=== PATIENT | female | born 2000 | race Caucasian/White ===

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

== ENCOUNTER 2019-03-02 22:55 | Emergency (ER) | payer OTHER ==
[~2019-03-02] VITALS: Ht 144.7 cm; Wt 72.6 kg
[~2019-03-02 22:55] MED LIST changes: +AMOXICILLIN500 M2 PO
[2019-03-02 22:57] VITALS: BP 126/47
[2019-03-02 23:58] LABS: BASO % 0.2 % (0.0-1.0); EOS # 0.2 10*3/uL (0.0-0.4); EOS % 1.5 % (1.0-4.0); HEMATOCRIT 33.1 % (37.0-47.0); HEMOGLOBIN 11.4 g/dl (12.0-16.0); LYMPH # 2.9 10*3/uL (1.3-4.4); LYMPH % 19.2 % (27.0-41.0); MEAN CELL VOLUME 91.7 fl (81.0-99.0); MEAN CORPUSCULAR HGB 31.6 pg (27.0-31.0); MEAN CORPUSCULAR HGB CONC 34.4 g/dl (33.0-37.0); MEAN PLATELET VOLUME 10.5 fl (9.6-12.3); MONO # 1.1 10*3/uL (0.1-1.0); NEUT # 10.8 10*3/uL (2.3-7.9); NEUT % 71.4 % (47.0-73.0); PLATELET COUNT AUTOMATED 254 10*3/uL (130-400); RED BLOOD COUNT 3.61 10*6/uL (4.10-5.10); RED CELL DISTRI WIDTH 12.6 % (0-14.5); WHITE BLOOD COUNT 15.1 10*3/uL (4.8-10.8)
[2019-03-03 00:09] LABS: BUN 5 mg/dl (7-24); CHLORIDE 106 mmol/L (98-107); CREATININE 0.39 mg/dL (0.55-1.02); POTASSIUM 3.6 mmol/L (3.5-5.1); SODIUM 137 mmol/L (136-145)
== END 2019-03-03 02:00 | disposition short-term general hospital (02) ==
LOC: ED 22:55
PROVIDERS: Emergency Medicine
DX: O60.03 Preterm labor without delivery, third trimester (principal); Z3A.28 28 weeks gestation of pregnancy

== ENCOUNTER → 2020-08-26 | Outpatient (CLI) | payer OTHER | END | disposition home or self-care (01) | LOC: CARD 15:25 | PROVIDERS: ATTEND Nurse Practitioner | DX: Z51.81 Encounter for therapeutic drug level monitoring (principal); I49.8 Other specified cardiac arrhythmias; Z79.899 Other long term (current) drug therapy ==

== ENCOUNTER 2020-10-31 23:07 | Emergency (ER) | payer OTHER ==
[~2020-10-31] VITALS: Ht 152.4 cm; Wt 81.6 kg
[2020-10-31 23:19] VITALS: BP 99/75
[2020-11-01] MEDS ORDERED: AUGMENTIN 875875 MG PO (02:00)
== END 2020-11-01 02:14 | disposition home or self-care (01) ==
LOC: ED 23:07
DX: J32.9 Chronic sinusitis, unspecified (principal); Z96.22 Myringotomy tube(s) status

== ENCOUNTER 2021-09-27 12:10 | Emergency (ER) | payer OTHER ==
[~2021-09-27] VITALS: Ht 144.7 cm; Wt 77.1 kg
[~2021-09-27 12:10] MED LIST changes: +AUGMENTIN 875875 MG PO
[2021-09-27 12:17] VITALS: BP 123/66
[2021-09-27 12:42] LABS: BILIRUBIN Negative (Negative); BLOOD 1+ (Negative); CLARITY Clear (Clear); COLOR Yellow (Yellow); GLUCOSE Negative (Negative); KETONE Negative (Negative); LEUKO ESTERASE Trace (Negative); NITRITE Negative (Negative); PH 6.5 (4.5-8.0); SPECIFIC GRAVITY 1.015 (1.001-1.030); UROBILINOGEN 0.2 E.U./dl (0.0-1.0)
[2021-09-27 12:52] LABS: BACTERIA 1+; MUCOUS TRACE
== END 2021-09-27 12:55 | disposition home or self-care (01) ==
LOC: ED 12:10
PROVIDERS: Nurse Practitioner Family
DX: N91.2 Amenorrhea, unspecified (principal)

== ENCOUNTER 2021-12-13 10:20 | Emergency (ER) | payer OTHER ==
[~2021-12-13] VITALS: Ht 149.8 cm; Wt 80.7 kg
[2021-12-13 10:32] VITALS: BP 111/55
[2021-12-13 10:57] LABS: BILIRUBIN Negative (Negative); BLOOD Negative (Negative); CLARITY Clear (Clear); COLOR Yellow (Yellow); GLUCOSE Negative (Negative); KETONE Negative (Negative); LEUKO ESTERASE 1+ (Negative); NITRITE Negative (Negative)
[2021-12-13 11:13] LABS: BASO % 0.2 % (0.0-1.0); EOS # 0.3 10*3/uL (0.0-0.4); EOS % 2.2 % (1.0-4.0); HEMATOCRIT 35.5 % (37.0-47.0); LYMPH # 3.2 10*3/uL (1.3-4.4); LYMPH % 27.2 % (27.0-41.0); MEAN CELL VOLUME 89.4 fl (81.0-99.0); MEAN CORPUSCULAR HGB 30.5 pg (27.0-31.0); MEAN CORPUSCULAR HGB CONC 34.1 g/dl (33.0-37.0); MEAN PLATELET VOLUME 9.5 fl (9.6-12.3); MONO # 0.7 10*3/uL (0.1-1.0); MONO % 6.2 % (3.0-9.0); NEUT # 7.6 10*3/uL (2.3-7.9); NEUT % 63.9 % (47.0-73.0); PLATELET COUNT AUTOMATED 365 10*3/uL (130-400); RED BLOOD COUNT 3.97 10*6/uL (4.10-5.10); RED CELL DISTRI WIDTH 12.7 % (0-14.5); WHITE BLOOD COUNT 11.9 10*3/uL (4.8-10.8)
[2021-12-13 11:16] LABS: MUCOUS TRACE
[2021-12-13 11:31] LABS: ALKALINE PHOSPHATASE 80 U/L (45-117); BUN 9 mg/dl (7-24); CHLORIDE 107 mmol/L (98-107); CREATININE 0.54 mg/dL (0.55-1.02); LIPASE 80 U/L (73-393); POTASSIUM 3.7 mmol/L (3.5-5.1); SGOT/AST 28 IU/L (3-35); SGPT/ALT 49 U/L (12-78); SODIUM 135 mmol/L (136-145); TOTAL PROTEIN 7.3 gm/dL (6.4-8.2)
[2021-12-13] MEDS ORDERED: MACROBID100 M1 PO (12:08)
== END 2021-12-13 12:31 | disposition home or self-care (01) ==
LOC: ED 10:20
PROVIDERS: Emergency Medicine
DX: O23.91 Unspecified genitourinary tract infection in pregnancy, first trimester (principal); Z3A.01 Less than 8 weeks gestation of pregnancy

== ENCOUNTER 2022-01-17 09:13 | Emergency (ER) | payer OTHER ==
[~2022-01-17] VITALS: Ht 152.4 cm; Wt 77.1 kg
[2022-01-17 09:33] VITALS: BP 117/59
== END 2022-01-17 13:15 | disposition left against medical advice (07) ==
LOC: ED 09:13
DX: O99.511 Diseases of the respiratory system complicating pregnancy, first trimester (principal); Z20.828 Contact with and (suspected) exposure to other viral communicable diseases; Z3A.10 10 weeks gestation of pregnancy; J02.9 Acute pharyngitis, unspecified; R09.81 Nasal congestion; R09.89 Other specified symptoms and signs involving the circulatory and respiratory systems

== ENCOUNTER 2022-02-08 09:51 | Emergency (ER) | payer OTHER ==
[~2022-02-08] VITALS: Ht 175.2 cm; Wt 77.1 kg
[2022-02-08 10:00] VITALS: BP 158/99
[2022-02-08 10:19] LABS: BASO % 0.1 % (0.0-1.0); HEMATOCRIT 38.2 % (37.0-47.0); LYMPH # 1.7 10*3/uL (1.3-4.4); LYMPH % 8.2 % (27.0-41.0); MEAN CELL VOLUME 88.2 fl (81.0-99.0); MEAN CORPUSCULAR HGB 30.9 pg (27.0-31.0); MEAN CORPUSCULAR HGB CONC 35.1 g/dl (33.0-37.0); MEAN PLATELET VOLUME 9.4 fl (9.6-12.3); MONO # 0.7 10*3/uL (0.1-1.0); MONO % 3.5 % (3.0-9.0); NEUT % 87.8 % (47.0-73.0); PLATELET COUNT AUTOMATED 468 10*3/uL (130-400); RED BLOOD COUNT 4.33 10*6/uL (4.10-5.10); WHITE BLOOD COUNT 20.5 10*3/uL (4.8-10.8)
[2022-02-08 10:34] LABS: ALKALINE PHOSPHATASE 76 U/L (45-117); BUN 10 mg/dl (7-24); CHLORIDE 102 mmol/L (98-107); CREATININE 0.72 mg/dL (0.55-1.02); LIPASE 120 U/L (73-393); POTASSIUM 3.3 mmol/L (3.5-5.1); SGOT/AST 23 IU/L (3-35); SGPT/ALT 33 U/L (12-78); SODIUM 134 mmol/L (136-145); TOTAL PROTEIN 8.8 gm/dL (6.4-8.2)
[2022-02-08 11:33] LABS: BILIRUBIN Negative (Negative); BLOOD 1+ (Negative); CLARITY Cloudy (Clear); COLOR Dark Yellow (Yellow); GLUCOSE Negative (Negative); KETONE Trace (Negative); LEUKO ESTERASE Trace (Negative); NITRITE Negative (Negative); SPECIFIC GRAVITY 1.025 (1.001-1.030)
[2022-02-08 12:38] LABS: BACTERIA 2+; EPITHELIAL CELLS 21-30
== END 2022-02-08 12:15 | disposition home or self-care (01) ==
LOC: ED 09:51
PROVIDERS: Emergency Medicine
DX: O21.9 Vomiting of pregnancy, unspecified (principal); Z20.822 Contact with and (suspected) exposure to COVID-19; Z3A.13 13 weeks gestation of pregnancy

== ENCOUNTER 2022-03-30 07:13 | Emergency (ER) | payer OTHER ==
[~2022-03-30] VITALS: Ht 162.5 cm; Wt 77.1 kg
[2022-03-30 07:26] VITALS: BP 131/95
[2022-03-30 07:54] LABS: BASO % 0.1 % (0.0-1.0); EOS % 0.1 % (1.0-4.0); HEMATOCRIT 35.4 % (37.0-47.0); LYMPH # 2.1 10*3/uL (1.3-4.4); LYMPH % 13.6 % (27.0-41.0); MEAN CELL VOLUME 90.5 fl (81.0-99.0); MEAN CORPUSCULAR HGB 31.5 pg (27.0-31.0); MEAN CORPUSCULAR HGB CONC 34.7 g/dl (33.0-37.0); MEAN PLATELET VOLUME 10.2 fl (9.6-12.3); MONO # 0.5 10*3/uL (0.1-1.0); MONO % 3.4 % (3.0-9.0); NEUT # 12.7 10*3/uL (2.3-7.9); NEUT % 82.5 % (47.0-73.0); PLATELET COUNT AUTOMATED 329 10*3/uL (130-400); RED BLOOD COUNT 3.91 10*6/uL (4.10-5.10); RED CELL DISTRI WIDTH 13.3 % (0-14.5); WHITE BLOOD COUNT 15.4 10*3/uL (4.8-10.8)
[2022-03-30 08:16] LABS: ALKALINE PHOSPHATASE 78 U/L (45-117); BUN 7 mg/dl (7-24); CHLORIDE 103 mmol/L (98-107); CREATININE 0.64 mg/dL (0.55-1.02); LIPASE 71 U/L (73-393); SGPT/ALT 30 U/L (12-78); SODIUM 133 mmol/L (136-145); TOTAL PROTEIN 8.3 gm/dL (6.4-8.2)
[2022-03-30 08:19] LABS: SGOT/AST 54 IU/L (3-35)
[2022-03-30 10:18] LABS: BILIRUBIN Negative (Negative); BLOOD Negative (Negative); CLARITY Cloudy (Clear); COLOR Yellow (Yellow); GLUCOSE Trace (Negative); KETONE 4+ (Negative); LEUKO ESTERASE Trace (Negative); NITRITE Negative (Negative); SPECIFIC GRAVITY 1.025 (1.001-1.030)
[2022-03-30 10:51] LABS: RBC 0-2 rbc/hpf (0-2)
== END 2022-03-30 13:00 | disposition short-term general hospital (02) ==
LOC: ED 07:13
PROVIDERS: Emergency Medicine
DX: O21.0 Mild hyperemesis gravidarum (principal); O26.892 Other specified pregnancy related conditions, second trimester; R10.13 Epigastric pain; R00.0 Tachycardia, unspecified; Z79.2 Long term (current) use of antibiotics; Z96.22 Myringotomy tube(s) status; Z3A.19 19 weeks gestation of pregnancy

== ENCOUNTER 2022-07-10 15:24 | Emergency (ER) | payer OTHER ==
[~2022-07-10] VITALS: Ht 149.8 cm; Wt 81.6 kg
[2022-07-10 16:08] VITALS: BP 121/73
== END 2022-07-10 19:15 | disposition home or self-care (01) ==
LOC: ED 15:24
DX: O26.893 Other specified pregnancy related conditions, third trimester (principal); O99.343 Other mental disorders complicating pregnancy, third trimester; R10.32 Left lower quadrant pain; R10.31 Right lower quadrant pain; F31.9 Bipolar disorder, unspecified; Z87.442 Personal history of urinary calculi; Z98.890 Other specified postprocedural states; Z3A.32 32 weeks gestation of pregnancy

== ENCOUNTER 2023-05-10 21:27 | Emergency (ER) | payer OTHER ==
[~2023-05-10] VITALS: Ht 149.8 cm; Wt 77.1 kg
[2023-05-10 21:46] VITALS: BP 114/74
[2023-05-10] MEDS ORDERED: CEPHALEXIN500 M1 PO (23:30)
== END 2023-05-10 23:50 | disposition home or self-care (01) ==
LOC: ED 21:27
DX: S01.111A Laceration without foreign body of right eyelid and periocular area, initial encounter (principal); S05.11XA Contusion of eyeball and orbital tissues, right eye, initial encounter; F31.9 Bipolar disorder, unspecified; F90.9 Attention-deficit hyperactivity disorder, unspecified type; Z98.890 Other specified postprocedural states; W22.03XA Walked into furniture, initial encounter; Y93.89 Activity, other specified; Y92.009 Unspecified place in unspecified non-institutional (private) residence as the place of occurrence of the external cause; Y99.8 Other external cause status

== ENCOUNTER 2024-03-27 07:08 | Emergency (ER) | payer OTHER ==
[~2024-03-27] VITALS: Ht 149.8 cm; Wt 77.1 kg
[~2024-03-27 07:08] MED LIST changes: +AMOX-CLAV 875-1 EACH PO; +CIPRO500 MG PO; +HYDROCODONE-AC1 EAC1 PO; +METRONIDAZOLE500 M1 PO; +OMEPRAZOLE MAGN20 MG PO; +PREDNISONE10 MG PO
[2024-03-27 07:30] VITALS: BP 121/70
[2024-03-27] MEDS ORDERED: Lactated Ringer's Solution 1,000 ML IV SCH (07:35)
[2024-03-27] MEDS ORDERED: Promethazine Hydrochloride 25 MG/ML VIAL IV ONE (07:35)
[2024-03-27 07:50] LABS: MEAN CELL VOLUME 87.3 fl (81.0-99.0); MEAN CORPUSCULAR HGB 30.2 pg (27.0-31.0); MEAN CORPUSCULAR HGB CONC 34.6 g/dl (33.0-37.0); MEAN PLATELET VOLUME 9.7 fl (9.6-12.3); PLATELET COUNT AUTOMATED 342 10*3/uL (130-400); RED BLOOD COUNT 4.01 10*6/uL (4.10-5.10); RED CELL DISTRI WIDTH 13.2 % (0-14.5); WHITE BLOOD COUNT 12.7 10*3/uL (4.8-10.8)
[2024-03-27 07:51] LABS: MANUAL DIFF REFLEX YES
[2024-03-27 08:10] LABS: PLATELET SUFFICIENCY NORMAL (NORMAL); TOTAL CELLS COUNTED 100 #CELLS
[2024-03-27 08:30] LABS: ALKALINE PHOSPHATASE 83 U/L (46-116); BUN 7 mg/dl (9-23); CHLORIDE 105 mmol/L (98-107); POTASSIUM 3.7 mmol/L (3.4-5.1); SGPT/ALT 17 U/L (5-49); TOTAL PROTEIN 7.5 gm/dL (6.0-8.0)
[2024-03-27] MEDS ORDERED: Ondansetron Hydrochloride 4 MG/2 ML VIAL IV ONE (09:05)
[2024-03-27] MEDS ORDERED: ACETAMINOPHEN 325 MG TAB PO ONE (09:05)
[2024-03-27 09:57] LABS: BILIRUBIN Negative (Negative); BLOOD Negative (Negative); CLARITY Clear (Clear); COLOR Yellow (Yellow); GLUCOSE 2+ (Negative); KETONE 4+ (Negative); LEUKO ESTERASE Negative (Negative); NITRITE Negative (Negative); PH 6.5 (4.5-8.0); SPECIFIC GRAVITY 1.025 (1.001-1.030); UROBILINOGEN 0.2 E.U./dl (0.0-1.0)
[2024-03-27 10:22] LABS: BACTERIA TRACE; MUCOUS 1+
[2024-03-27] MEDS ORDERED: Ondansetron4 MG PO (10:33)
[2024-03-27] MEDS ORDERED: MACROBID100 M1 PO (10:33)
== END 2024-03-27 10:52 | disposition home or self-care (01) ==
LOC: ED 07:08
PROVIDERS: Emergency Medicine
DX: O21.9 Vomiting of pregnancy, unspecified (principal); O23.91 Unspecified genitourinary tract infection in pregnancy, first trimester; B96.89 Other specified bacterial agents as the cause of diseases classified elsewhere; R10.2 Pelvic and perineal pain; Z79.899 Other long term (current) drug therapy; Z96.22 Myringotomy tube(s) status; Z3A.01 Less than 8 weeks gestation of pregnancy

== ENCOUNTER 2024-07-06 03:25 | Emergency (ER) | payer OTHER ==
[~2024-07-06] VITALS: Ht 149.8 cm; Wt 83.9 kg
[~2024-07-06 03:25] MED LIST changes: +Ondansetron4 MG PO
[2024-07-06 03:37] VITALS: BP 101/58
[2024-07-06 04:10] LABS: BILIRUBIN Negative (Negative); BLOOD Negative (Negative); CLARITY Clear (Clear); COLOR Yellow (Yellow); GLUCOSE Negative (Negative); KETONE Negative (Negative); LEUKO ESTERASE 1+ (Negative); NITRITE Negative (Negative)
[2024-07-06] MEDS ORDERED: Vancomycin Hydrochloride 250 ML IV ONE (04:10)
[2024-07-06] MEDS ORDERED: Piperacillin Sodium/Tazobact 50 ML IV ONE (04:10)
[2024-07-06 04:17] LABS: URINE AMPHETAMINES Negative (1000ng/ml); URINE BARBITURATES Negative (200ng/ml); URINE BENZODIAZEPINES Negative (200ng/ml); URINE CANNABINOIDS (THC) Positive (50ng/ml); URINE COCAINE Negative (300ng/ml); URINE METHADONE Negative (300ng/ml); URINE OPIATES Negative (300ng/ml); URINE PHENCYCLIDINE Negative (25ng/ml)
[2024-07-06 04:18] LABS: BACTERIA 1+; EPITHELIAL CELLS 31-40; MUCOUS 2+; RBC 0-2 rbc/hpf (0-2)
[2024-07-06 04:22] LABS: BASO % 0.2 % (0.0-1.0); EOS # 0.3 10*3/uL (0.0-0.4); EOS % 2.1 % (1.0-4.0); HEMATOCRIT 30.1 % (37.0-47.0); MEAN CELL VOLUME 89.3 fl (81.0-99.0); MEAN CORPUSCULAR HGB 29.7 pg (27.0-31.0); MEAN CORPUSCULAR HGB CONC 33.2 g/dl (33.0-37.0); MEAN PLATELET VOLUME 10.4 fl (9.6-12.3); MONO # 0.9 10*3/uL (0.1-1.0); MONO % 6.8 % (3.0-9.0); NEUT # 8.9 10*3/uL (2.3-7.9); NEUT % 71.4 % (47.0-73.0); PLATELET COUNT AUTOMATED 260 10*3/uL (130-400); RED BLOOD COUNT 3.37 10*6/uL (4.10-5.10); RED CELL DISTRI WIDTH 12.6 % (0-14.5); WHITE BLOOD COUNT 12.4 10*3/uL (4.8-10.8)
[2024-07-06] MEDS ORDERED: ACETAMINOPHEN 325 MG TAB PO ONE (04:30)
[2024-07-06 04:54] LABS: BUN < 5 mg/dl (9-23); CHLORIDE 103 mmol/L (98-107); ETHYL ALCOHOL < 3.0 mg/dl (<3); POTASSIUM 3.7 mmol/L (3.4-5.1)
[2024-07-06] MEDS ORDERED: Ondansetron Hydrochloride 4 MG TAB SL ONE (05:05)
[2024-07-06] MEDS ORDERED: AMOX-CLAV 875-1 EACH PO (05:20)
[2024-07-06] MEDS ORDERED: Amoxicillin/Clavulanate Pota 875 MG TAB PO ONE (05:25)
== END 2024-07-06 05:43 | disposition home or self-care (01) ==
LOC: ED 03:25
PROVIDERS: Internal Medicine
DX: O23.42 Unspecified infection of urinary tract in pregnancy, second trimester (principal); N39.0 Urinary tract infection, site not specified; O99.342 Other mental disorders complicating pregnancy, second trimester; F84.0 Autistic disorder; R10.2 Pelvic and perineal pain; Z79.899 Other long term (current) drug therapy; Z79.2 Long term (current) use of antibiotics; Z96.22 Myringotomy tube(s) status; Z98.890 Other specified postprocedural states; Z3A.27 27 weeks gestation of pregnancy

== ENCOUNTER 2025-03-31 12:03 | Emergency (ER) | payer OTHER ==
[2025-03-31 12:26] VITALS: BP 109/69
[2025-03-31] MEDS ORDERED: CEPHALEXIN500 M1 PO (14:09)
[2025-03-31] MEDS ORDERED: CEPHALEXIN 500 MG CAP PO ONE (14:10)
[2025-03-31] MEDS ORDERED: Bacitracin Zinc 14 GM TUBE T ONE (14:10)
== END 2025-03-31 14:17 | disposition home or self-care (01) ==
LOC: ED 12:03
DX: S90.851A Superficial foreign body, right foot, initial encounter (principal); F90.9 Attention-deficit hyperactivity disorder, unspecified type; F31.9 Bipolar disorder, unspecified; Z98.890 Other specified postprocedural states; W45.8XXA Other foreign body or object entering through skin, initial encounter; Y93.89 Activity, other specified; Y92.89 Other specified places as the place of occurrence of the external cause; Y99.8 Other external cause status

== ENCOUNTER 2025-04-09 12:39 | Emergency (ER) | payer OTHER ==
[~2025-04-09] VITALS: Ht 152.4 cm; Wt 77.1 kg
[2025-04-09 12:50] VITALS: BP 128/74
[2025-04-09] MEDS ORDERED: Ondansetron Hydrochloride 4 MG/2 ML VIAL IV ONE ×2 (13:00→14:20)
[2025-04-09] MEDS ORDERED: SODIUM CHLORIDE 0.9% 1,000 ML IV ONE ×2 (13:00)
[2025-04-09 13:08] LABS: BILIRUBIN 2+ (Negative); BLOOD 2+ (Negative); CLARITY Turbid (Clear); COLOR Red (Yellow); KETONE Negative (Negative); LEUKO ESTERASE 3+ (Negative); NITRITE Positive (Negative); SPECIFIC GRAVITY >= 1.030 (1.001-1.030); UROBILINOGEN 0.2 E.U./dl (0.0-1.0)
[2025-04-09 13:24] LABS: BASO # 0.0 10*3/uL (0.0-0.1); BASO % 0.3 % (0.0-1.0); EOS # 0.0 10*3/uL (0.0-0.4); EOS % 0.3 % (1.0-4.0); MEAN CELL VOLUME 88.4 fl (81.0-99.0); MEAN CORPUSCULAR HGB 29.5 pg (27.0-31.0); MEAN PLATELET VOLUME 9.6 fl (9.6-12.3); MONO # 0.6 10*3/uL (0.1-1.0); MONO % 4.2 % (3.0-9.0); NEUT # 12.1 10*3/uL (2.3-7.9); NEUT % 80.5 % (47.0-73.0); NUCLEATED RED BLOOD CELL 0.0 % (0.0-0.0); NUCLEATED RED BLOOD CELL 0.0 10*3/uL (0.0-0.0); PLATELET COUNT AUTOMATED 467 10*3/uL (130-400); RED CELL DISTRI WIDTH 12.7 % (0-14.5)
[2025-04-09 13:32] LABS: PH 6.0 (4.5-8.0)
[2025-04-09 13:33] LABS: BACTERIA 2+; EPITHELIAL CELLS 16-20; RBC TNTC rbc/hpf (0-2); WBC TNTC wbc/hpf (0-5)
[2025-04-09 13:51] LABS: BUN 10 mg/dl (9-23); SGPT/ALT 60 U/L (5-49)
[2025-04-09] MEDS ORDERED: SEPTDS PO (16:36)
[2025-04-09] MEDS ORDERED: Ondansetron4 MG PO (16:36)
== END 2025-04-09 16:44 | disposition home or self-care (01) ==
LOC: ED 12:39
PROVIDERS: Nurse Practitioner Family
DX: N30.01 Acute cystitis with hematuria (principal); R11.2 Nausea with vomiting, unspecified; R19.7 Diarrhea, unspecified; F31.9 Bipolar disorder, unspecified; F90.9 Attention-deficit hyperactivity disorder, unspecified type; Z98.890 Other specified postprocedural states